=== PATIENT | female | born 1960 | race American Indian/Alaskan Native ===

== ENCOUNTER 2019-02-07 03:23 | Emergency (ER) | payer SELFPAY ==
[2019-02-07] MEDS ORDERED: NACL 0.9% 1000 ML 1,000 ML IV ONE (03:29)
[2019-02-07 04:10] LABS: Basophils # (Auto) 0.1 K/mm3 (0.0-0.1); Basophils % (Auto) 0.8 % (0.0-1.8); Eosinophils # (Auto) 0.1 K/mm3 (0.0-0.4); Eosinophils % (Auto) 1.3 % (0.0-4.3); Hematocrit 39.1 % (30.3-42.9); Hemoglobin 13.4 gm/dl (10.1-14.3); Lymphocytes # (Auto) 2.6 K/mm3 (1.2-5.4); Mean Corpuscular HGB Conc 34 % (30-34); Mean Corpuscular Volume 76 fl (79-97); Monocytes # (Auto) 0.8 K/mm3 (0.0-0.8); Monocytes % (Auto) 7.2 % (0.0-7.3); Platelet Count 279 K/mm3 (140-440); Red Blood Count 5.17 M/mm3 (3.65-5.03); Red Cell Distribution Width 13.7 % (13.2-15.2)
[2019-02-07 04:41] LABS: Alanine Aminotransferase 16 units/L (7-56); Albumin 4.1 g/dL (3.9-5); BUN/Creatinine Ratio 18; Blood Urea Nitrogen 11 mg/dL (7-17); Calcium 9.3 mg/dL (8.4-10.2); Hemolysis Index 5
[2019-02-07] MEDS ORDERED: ZOFRAN ONE (04:58)
[2019-02-07] MEDS ORDERED: MORPHINE ONE (04:59)
[2019-02-07 05:59] LABS: Bilirubin,Urine NEG (Negative); Blood,Urine NEG (Negative); Color,Urine Straw (Yellow); Mucus,Urine FEW /HPF; Protein,Urine <15 mg/dL mg/dL (Negative); Urobilinogen,Urine < 2.0 mg/dL (<2.0)
--- NOTE | 2019-02-07 06:01 | Cat Scan Report ---
PROCEDURE: CT ABDOMEN PELVIS W CON TECHNIQUE: CT imaging is obtained through the abdomen and pelvis in arterial and delayed phases foll owing intravenous administration of contrast HISTORY: right sided abd pain COMPARISONS: FINDINGS: Partially visualized intrathoracic contents are unremarkable. Incidentally noted probable pancreatic divisum. The liver, gallbladder, pancreas, spleen, and adrenal glands are otherwise unremarkable. Kidneys show no worrisome lesions, hydronephrosis, or calculi. Right upper pole 2 cm simple-appearing cyst. Urinary bladder is unremarkable. Anteverted uterus with multiple calcified fibroids. No free f luid in the pelvis. Small and large bowel are normal in caliber. Appendix is normal. Descending and sigmoid diverticulosi s without surrounding inflammatory findings. No free air, free fluid, or lymphadenopathy identified. Aorta is normal in course and caliber. Superficial soft tissues are unremarkable. No acute or aggressive appearing skeletal findings. IMPRESSION: No acute findings in the abdomen or pelvis. Incidentally noted probable pancreatic divisum. This document is electronically signed by Sánchez Bender MD., February 07 2019 05:59:33 AM ET
[2019-02-07 06:02] LABS: WBC,Urine < 1.0 /HPF (0.0-6.0)
--- NOTE | 2019-02-07 06:29 | Emergency Department Report ---
ED Abdominal Pain HPI - General Chief Complaint: Abdominal Pain Stated Complaint: ABD PAIN Time Seen by Provider: 02/07/19 06:11 Source: patient, family Mode of arrival: Ambulatory Limitations: Language Barrier - History of Present Illness Initial Comments: Patient is a 58-year-old female patient appears emergency room with complaints of right upper and right lower quadrant pain. Patient states the pain is a 4 out of 10. The patient states the pain has resolved. Patient states the pain is not radiating. Patient states the pain is better with rest and worse with palpation and movement. Patient states she has difficulties having a bowel movement. Patient denies fever and chills. Patient denies diarrhea. Patient denies nausea vomiting. Daughter at bedside to translate for patient. MD Complaint: abdominal pain -: Sudden Location: RUQ, RLQ Radiation: none Migration to: no migration Severity scale (0 -10): 0 - Related Data Previous Rx's Medication Instructions Recorded Last Taken Type Docusate Sodium [Colace] 100 mg PO BID #30 capsule 02/07/19 Unknown Rx Magnesium Citrate [Citrate of 296 ml PO ONCE #1 solution 02/07/19 Unknown Rx Magnesia] traMADol [Ultram] 50 mg PO Q4HR PRN #12 tablet 02/07/19 Unknown Rx Allergies Allergy/AdvReac Type Severity Reaction Status Date / Time No Known Allergies Allergy Verified 02/07/19 04:57 ED Review of Systems ROS: Stated complaint: ABD PAIN Other details as noted in HPI Constitutional: denies: chills, fever Eyes: denies: eye pain, eye discharge, vision change ENT: denies: ear pain, throat pain Respiratory: denies: cough, shortness of breath, wheezing Cardiovascular: denies: chest pain, palpitations Endocrine: no symptoms reported Gastrointestinal: abdominal pain, constipation. denies: nausea, diarrhea Genitourinary: denies: urgency, dysuria, discharge Musculoskeletal: denies: back pain, joint swelling, arthralgia Skin: denies: rash, lesions Neurological: denies: headache, weakness, paresthesias Psychiatric: denies: anxiety, depression Hematological/Lymphatic: denies: easy bleeding, easy bruising ED Past Medical Hx - Past Medical History Previous Medical History?: No - Surgical History Past Surgical History?: No - Family History Family history: no significant - Social History Smoking Status: Never Smoker Substance Use Type: None - Medications Home Medications: Home Medications Medication Instructions Recorded Confirmed Last Taken Type Docusate Sodium [Colace] 100 mg PO BID #30 capsule 02/07/19 Unknown Rx Magnesium Citrate [Citrate of 296 ml PO ONCE #1 solution 02/07/19 Unknown Rx Magnesia] traMADol [Ultram] 50 mg PO Q4HR PRN #12 tablet 02/07/19 Unknown Rx ED Physical Exam - General Limitations: Language Barrier General appearance: alert, in no apparent distress - Head Head exam: Present: atraumatic, normocephalic - Eye Eye exam: Present: normal appearance - ENT ENT exam: Present: mucous membranes moist - Neck Neck exam: Present: normal inspection - Respiratory Respiratory exam: Present: normal lung sounds bilaterally. Absent: respiratory distress - Cardiovascular Cardiovascular Exam: Present: regular rate, normal rhythm. Absent: systolic murmur, diastolic murmur, rubs, gallop - GI/Abdominal GI/Abdominal exam: Present: soft, tenderness (moderate tenderness to palpation over the right upper quadrant), normal bowel sounds - Extremities Exam Extremities exam: Present: normal inspection - Back Exam Back exam: Present: normal inspection - Neurological Exam Neurological exam: Present: alert, oriented X3 - Psychiatric Psychiatric exam: Present: normal affect, normal mood - Skin Skin exam: Present: warm, dry, intact, normal color. Absent: rash ED Course Vital Signs 02/07/19 02/07/19 02/07/19 03:30 05:26 10:49 Temperature 98.3 F Pulse Rate 70 76 65 Respiratory 18 20 17 Rate Blood Pressure 167/87 Blood Pressure 153/63 122/72 [Right] O2 Sat by Pulse 100 98 97 Oximetry - Reevaluation(s) Reevaluation #1: Initial evaluation done. Patient CT is negative. Due to the fact the patient has tenderness over the right upper quadrant ultrasound will be done. 02/07/19 06:23 Discussed all results with the family and patient. Daughter at bedside to translate. Patient states the pain is better. Patient has been given pain medications in the ER. Patient will be discharged home. Patient given discharge instructions. Patient voiced understanding of discharge instructions. 02/07/19 10:00 ED Medical Decision Making - Lab Data Result diagrams: 02/07/19 03:35 02/07/19 03:35 - Radiology Data Radiology results: report reviewed ULTRASOUND ABDOMEN COMPLETE INDICATION: Right upper quadrant pain. COMPARISON: CT from earlier today. FINDINGS: Abdominal sonography demonstrates mild diffuse hepatic echogenic coarsening with grossly preserved contours. No definite focal suspicious lesions or biliary dilatation, to the extent assessed. No gallstones or pericholecystic fluid. Gallbladder wall thickness is approximately 2 mm. Common bile duct is approximately 7 mm. Homogenous spleen, approximately 8.9 cm in length. No ascites. Visualized pancreas grossly within normal limits in this patient with pancreatic divisum suspected on CT. Unremarkable IVC. Nonaneurysmal abdominal aorta. Top normal renal cortical echogenicity. No hydronephrosis with right kidney approximately 11.7 x 4.8 x 5.8 cm with cortical thickness of 1.6 cm while the left kidney is 10.8 x 5.9 x 6.5 cm with cortical thickness of 1.5 cm. Approximately 2 x 1.4 cm right renal cortical cyst again noted, image 43. CONCLUSION: No acute abdominal sonographic abnormality with various findings including fatty liver, possible pancreatic divisum and stable right renal cyst, amongst others, described. Please correlate. - Medical Decision Making Patient is a 58-year-old female presents emergency room with right upper and right lower quadrant abdominal pain. Patient's labs and CT and ultrasound unremarkable. Patient will need to follow up with a [facility] k[facility] re[facility] and her primary care. Patient given discharge instruction. Patient is stable for discharge. - Differential Diagnosis abdominal pain. Constipation. Critical care attestation.: If time is entered above; I have spent that time in minutes in the direct care of this critically ill patient, excluding procedure time. ED Disposition Clinical Impression: Abdominal pain Qualifiers: Abdominal location: right upper quadrant Qualified Code(s): R10.11 - Right upper quadrant pain Constipation Qualifiers: Constipation type: unspecified constipation type Qualified Code(s): K59.00 - Constipation, unspecified Disposition: DC-01 TO HOME OR SELFCARE Is pt being admited?: No Does the pt Need Aspirin: No Condition: Stable Instructions: Constipation (ED), High Fiber Diet (ED), Abdominal Pain (ED) Additional Instructions: Patient to follow up with primary care in 2-3 days. Patient to follow-up with ka[facility] k[facility] reo in 2-3 days. Patient to return to ER if condition worsens. Patient increase water. Patient eat a high-fiber diet. Patient to rest. Patient take pain meds only when necessary and as instructed. Patient to take Tylenol or ibuprofen when necessary for pain Prescriptions: Magnesium Citrate [Citrate of Magnesia] 296 ml PO ONCE #1 solution Docusate Sodium [Colace] 100 mg PO BID #30 capsule traMADol [Ultram] 50 mg PO Q4HR PRN #12 tablet PRN Reason: Pain Referrals: [facility] [Primary Care Provider] - 2-3 Days HUMBERTO HENDERSON MD [Staff Physician] - 2-3 Days Forms: Accompanied Note Time of Disposition: 10:26
[2019-02-07] MEDS ORDERED: ZOFRAN IV ONE (06:39)
[2019-02-07] MEDS ORDERED: MORPHINE IV ONE (06:39)
[2019-02-07] MEDS ORDERED: DILAUDID IV ONE (07:14)
--- NOTE | 2019-02-07 07:39 | Ultrasound Report ---
ULTRASOUND ABDOMEN COMPLETE INDICATION: Right upper quadrant pain. COMPARISON: CT from earlier today. FINDINGS: Abdominal sonography demonstrates mild diffuse hepatic echogenic coarsening with grossly preserved contours. No definite focal suspicious lesions or biliary dilatation, to the extent assessed. No gallstones or pericholecystic fluid. Gallbladder wall thickness is approximately 2 mm. Common bile duct is approximately 7 mm. Homogenous spleen, approximately 8.9 cm in length. No ascites. Visualized pancreas grossly within normal limits in this patient with pancreatic divisum suspected on CT. Unremarkable IVC. Nonaneurysmal abdominal aorta. Top normal renal cortical echogenicity. No hydronephrosis with right kidney approximately 11.7 x 4.8 x 5.8 cm with cortical thickness of 1.6 cm while the left kidney is 10.8 x 5.9 x 6.5 cm with cortical thickness of 1.5 cm. Approximately 2 x 1.4 cm right renal cortical cyst again noted, image 43. CONCLUSION: No acute abdominal sonographic abnormality with various findings including fatty liver, possible pancreatic divisum and stable right renal cyst, amongst others, described. Please correlate. Thank you for the opportunity to participate in this patient's care.
[2019-02-07 10:50] VITALS: BP 122/72
== END 2019-02-07 10:49 | disposition home or self-care (01) ==
LOC: ED 03:23
DX: K59.00 Constipation, unspecified (principal)
CPT/HCPCS: 36415; 74177; 76700; 80053; 81001; 83690; 85025; 96374; 96375; 99284; J1170; J2270; J2405; J7030; Q9967

== ENCOUNTER 2020-02-06 01:36 | Emergency (ER) | payer SELFPAY ==
[2020-02-06 04:28] VITALS: BP 150/104
[2020-02-06] MEDS ORDERED: TETANUS,DIPH,PERTUSS(ACELL) VACCINE 0.5 ML SYRINGE IM ONE (05:16)
[2020-02-06] MEDS ORDERED: HYDROcodone/ACETAMINOPHEN 7.5-325MG TAB PO ONE (05:16)
[2020-02-06] MEDS ORDERED: ONDANSETRON 4 MG ODT TAB PO ONE (05:16)
[2020-02-06] MEDS ORDERED: cephALEXin 500 MG CAP PO ONE (05:16)
[2020-02-06] MEDS ORDERED: IBUPROFEN 600 MG TAB PO ONE (05:17)
[2020-02-06] MEDS ORDERED: LET TOPICAL (LIDOCAINE/EPINEPHRINE/TETRACAINE) 3 ML TP ONE ×2 (06:43→06:45)
[2020-02-06] MEDS ORDERED: NEOMY 3.5 MG/BACIT 400 UNITS/POLY B 5000 UNITS/GM OINT PACKET TP ONE ×2 (06:49)
--- NOTE | 2020-02-06 07:14 | Emergency Department Report ---
ED Upper Extremity Inj HPI - General Chief Complaint: Extremity Injury, Upper Stated Complaint: L RING FINGER LACERATION Source: patient Mode of arrival: Ambulatory Limitations: No Limitations - History of Present Illness Initial Comments: Patient is a 59-year-old -[place] female with no past medical history who presents to the ED with complaint of acute onset persistent painful swelling bleeding distal left ring finger laceration with partial nail avulsion after a car door closed and crush the distal left index ring finger about 5 hours ago. Patient states that she is not up-to-date with her tetanus vaccinations. Patient denies numbness or tingling or weakness of left hand or left ring finger. Patient also denies nausea, vomiting, fall, dizziness, syncope or chest pain or shortness of breath. MD Complaint: Injury to:: left, finger (ring finger bleeding laceration and pain) -: Sudden, hour(s) (5) Other Extremity Injury: Fingers: Left (Distal ring finger laceration and partial nail avulsion) Other Injuries: none Handedness: right Place: work Severity scale (0 -10): 9 Improves With: none Worsens With: movement of extremity Context: direct blow (Car door slammed onto the left ring finger), laceration, crush (Car door smashed onto the left ring finger), injury - Related Data Previous Rx's Medication Instructions Recorded Last Taken Type Docusate Sodium [Colace] 100 mg PO BID #30 capsule 02/07/19 Unknown Rx Magnesium Citrate [Citrate of 296 ml PO ONCE #1 solution 02/07/19 Unknown Rx Magnesia] traMADoL [Ultram] 50 mg PO Q4HR PRN #12 tablet 02/07/19 Unknown Rx Ibuprofen [Motrin 600 MG tab] 600 mg PO Q8H PRN #14 tablet 08/15/19 Unknown Rx Acetaminophen/Codeine [Tylenol 1 tab PO Q6H PRN #15 tab 02/06/20 Unknown Rx /Codeine # 3 tab] Ibuprofen [Motrin] 800 mg PO Q8HR PRN #30 tablet 02/06/20 Unknown Rx cephALEXin [Keflex] 500 mg PO Q6HR #40 capsule 02/06/20 Unknown Rx traMADoL [Ultram 50 MG tab] 50 mg PO Q6HR PRN #10 tablet 02/06/20 Unknown Rx Allergies Allergy/AdvReac Type Severity Reaction Status Date / Time No Known Allergies Allergy Verified 02/07/19 04:57 ED Review of Systems ROS: Stated complaint: L RING FINGER LACERATION Other details as noted in HPI Constitutional: denies: chills, fever Eyes: denies: eye pain, eye discharge, vision change ENT: denies: ear pain, throat pain Respiratory: denies: cough, shortness of breath, wheezing Cardiovascular: denies: chest pain, palpitations Endocrine: no symptoms reported Gastrointestinal: denies: abdominal pain, nausea, diarrhea Genitourinary: denies: urgency, dysuria, discharge Musculoskeletal: arthralgia (left ring finger laceration and partial nail avulsion). denies: back pain, joint swelling Skin: other (Bleeding distal left ring finger laceration and partial nail avulsion). denies: rash, lesions Neurological: denies: headache, weakness, paresthesias Psychiatric: denies: anxiety, depression Hematological/Lymphatic: denies: easy bleeding, easy bruising ED Past Medical Hx - Past Medical History Previous Medical History?: No - Surgical History Past Surgical History?: No - Social History Smoking Status: Never Smoker Substance Use Type: None - Medications Home Medications: Home Medications Medication Instructions Recorded Confirmed Last Taken Type Docusate Sodium [Colace] 100 mg PO BID #30 capsule 02/07/19 Unknown Rx Magnesium Citrate [Citrate of 296 ml PO ONCE #1 solution 02/07/19 Unknown Rx Magnesia] traMADoL [Ultram] 50 mg PO Q4HR PRN #12 tablet 02/07/19 Unknown Rx Ibuprofen [Motrin 600 MG tab] 600 mg PO Q8H PRN #14 tablet 08/15/19 Unknown Rx Acetaminophen/Codeine [Tylenol 1 tab PO Q6H PRN #15 tab 02/06/20 Unknown Rx /Codeine # 3 tab] Ibuprofen [Motrin] 800 mg PO Q8HR PRN #30 tablet 02/06/20 Unknown Rx cephALEXin [Keflex] 500 mg PO Q6HR #40 capsule 02/06/20 Unknown Rx traMADoL [Ultram 50 MG tab] 50 mg PO Q6HR PRN #10 tablet 02/06/20 Unknown Rx ED Physical Exam - General Limitations: No Limitations General appearance: alert, in no apparent distress - Head Head exam: Present: atraumatic, normocephalic, normal inspection - Eye Eye exam: Present: normal appearance, PERRL Pupils: Present: normal accommodation - ENT ENT exam: Present: normal exam, normal orophraynx, mucous membranes moist, TM's normal bilaterally, normal external ear exam - Neck Neck exam: Present: normal inspection, full ROM - Respiratory Respiratory exam: Present: normal lung sounds bilaterally. Absent: respiratory distress, wheezes, rales, rhonchi, chest wall tenderness, accessory muscle use, other - Cardiovascular Cardiovascular Exam: Present: regular rate, normal rhythm, normal heart sounds. Absent: systolic murmur, diastolic murmur, rubs, gallop - GI/Abdominal GI/Abdominal exam: Present: soft, normal bowel sounds. Absent: tenderness, guarding, hyperactive bowel sounds, hypoactive bowel sounds, organomegaly - Extremities Exam Extremities exam: Present: normal inspection, full ROM, tenderness (Palpable severe distal left ring finger bleeding 3 cm laceration and partial nail avulsion), normal capillary refill - Back Exam Back exam: Present: normal inspection, full ROM. Absent: tenderness, muscle spasm, paraspinal tenderness - Neurological Exam Neurological exam: Present: alert, oriented X3, CN II-XII intact, reflexes normal - Psychiatric Psychiatric exam: Present: normal affect, normal mood - Skin Skin exam: Present: warm, dry, intact, normal color, other (Bleeding distal left ring finger 3 cm laceration with partial nail avulsion). Absent: rash ED Course Vital Signs 02/06/20 04:26 Temperature 98 F Pulse Rate 66 Respiratory 16 Rate Blood Pressure 150/104 [Left] O2 Sat by Pulse 100 Oximetry - Laceration /Wound Repair Left Distal Finger Wound Location: upper extremity (distal left ring finger ) Wound Length (cm): 3 Wound's Depth, Shape: into muscle, irregular, nail-avulsed Wound Explored: contaminated Irrigated w/ Saline (ccs): 100 Betadine Prep?: Yes Anesthesia: 1% Lidocaine Volume Anesthetic (ccs): 5 Wound Debrided: extensive Wound Repaired With: sutures Suture Size/Type: 3:0, proline Number of Sutures: 5 Layer Closure?: No Sterile Dressing Applied?: Yes Progress: Patient tolerated the procedure well. The wound was cleaned thoroughly and dressed appropriately after application of Neosporin. Finger splint was applied and the patient was discharged home on antibiotics and pain medication and given a referral to the orthopedic surgeon on-call Dr. Delgado for follow-up. Patient was advised to return to the ED immediately if symptoms get worse. Patient was also advised to return to the ED in 12 to 14 days for suture removal. ED Medical Decision Making - Radiology Data Radiology results: report reviewed, image reviewed Left hand x-ray shows comminuted distal left ring finger fracture - Medical Decision Making This is a 59-year-old female who presented to the ED with painful bleeding distal left ring finger laceration and partial nail avulsion after a car door slammed onto her left ring finger 5 hours ago. In the ED, patient is alert and oriented x3 and is not in distress but appears to be in significant pain. Patient was treated for pain in the ED and also received a tetanus vaccination in the ED. Patient was also treated with an initial oral antibiotics in the ED. The left hand x-ray shows comminuted distal left ring finger fracture. The distal left ring finger laceration was cleaned thoroughly and sutured per protocol. Patient tolerated the procedure well and a Neosporin ointment was applied onto the wound after suturing. The wound was then dressed appropriately and a finger splint applied to stabilize the distal left ring finger fracture. Patient was discharged home on pain medications and oral antibiotics and was given a referral to the orthopedic surgeon on-call Dr. Delgado for follow-up. The patient and family were advised to contact Dr. Delgado's office by phone to schedule a follow-up appointment. Patient was advised to return to the ED immediately if symptoms get worse otherwise return to the ED in 12 to 14 days for suture removal. - Differential Diagnosis finger fracture; finger sprain; finger laceration; finger contusion Critical care attestation.: If time is entered above; I have spent that time in minutes in the direct care of this critically ill patient, excluding procedure time. ED Disposition Clinical Impression: Laceration of finger of left hand with damage to nail Qualifiers: Encounter type: initial encounter Finger: index finger Foreign body presence: without foreign body Qualified Code(s): S61.311A - Laceration without foreign body of left index finger with damage to nail, initial encounter Displaced fracture of distal phalanx of left ring finger Qualifiers: Encounter type: initial encounter Fracture type: open Qualified Code(s): S62.635B - Displaced fracture of distal phalanx of left ring finger, initial encounter for open fracture Disposition: DC-01 TO HOME OR SELFCARE Is pt being admited?: No Does the pt Need Aspirin: No Condition: Stable Instructions: Finger Fracture (ED), Finger Laceration (ED) Additional Instructions: Prenez katrin mdicaments avec de la nourriture, buvez beaucoup de liquides et faites un suivi avec le chirurgien orthopdiste wallace tu, le Dr Delgado pour une valuation plus approfondie, comme indiqu. Communiquez avec le bureau du Dr Delgado le papito pour planifier un rendez-vous de suivi. Revenez immdiatement l'urgence si les symptmes s'aggravent. Sinon, retournez l'urgence dans les 14 jours pour le retrait de la suture. Prescriptions: cephALEXin [Keflex] 500 mg PO Q6HR #40 capsule Ibuprofen [Motrin] 800 mg PO Q8HR PRN #30 tablet PRN Reason: Pain , Severe (7-10) Acetaminophen/Codeine [Tylenol /Codeine # 3 tab] 1 tab PO Q6H PRN #15 tab PRN Reason: Pain , Severe (7-10) traMADoL [Ultram 50 MG tab] 50 mg PO Q6HR PRN #10 tablet PRN Reason: Pain Referrals: NIKITA DELGADO MD [Staff Physician] - 3-5 Days Time of Disposition: 07:25 Print Language: ITALIAN
== END 2020-02-06 07:50 | disposition home or self-care (01) ==
LOC: ED 01:36
DX: S61.311A Laceration without foreign body of left index finger with damage to nail, initial encounter (principal); S62.635B Displaced fracture of distal phalanx of left ring finger, initial encounter for open fracture
CPT/HCPCS: 90471; 90715; A6250; Q0162